=== PATIENT | male | born 1950 | race Caucasian/White ===

== ENCOUNTER → 2021-07-11 08:54 | Outpatient (BNVA) | payer MEDICARE, SELFPAY | PROVIDERS: Family Provider Family Medicine; PCP Family Medicine; Visit Provider Family Medicine Adult Medicine | DX: S91.109A Unspecified open wound of unspecified toe(s) without damage to nail, initial encounter (principal); X58.XXXA Exposure to other specified factors, initial encounter | CPT/HCPCS: 88304 ==

== ENCOUNTER → 2022-11-28 14:19 | Outpatient (BNVA) | payer MEDICARE, SELFPAY | PROVIDERS: Family Provider Family Medicine; PCP Family Medicine; Visit Provider Surgery | DX: K40.20 Bilateral inguinal hernia, without obstruction or gangrene, not specified as recurrent (principal) | CPT/HCPCS: 99203 ==

== ENCOUNTER 2022-11-29 10:36 | Day surgery (SDC) | payer MEDICARE, SELFPAY ==
[2022-11-28 17:38] VITALS: BMI 23.1
[2022-11-29] VITALS (10 sets, daily range): BP systolic 152–197; BP diastolic 84–101; PULSE 54–89; RESP 16–18; TEMP 36.1–36.4; O2SAT 95–100
[2022-11-29] MEDS: sodium chloride 0.9% 1,000 ML 30 ML IV (11:01)
--- NOTE | 2022-11-29 12:30 | W.PM.OPSUD ---
Surgery/Procedure H&P Update DATE OF PROCEDURE: November 29, 2022 DATE H&P PERFORMED: 11/28/22 H&P UPDATE INFORMATION: I have reviewed H&P completed within last 30 days, I have examined patient prior to procedure and No changes to prior documentation PLANNED PROCEDURE: Operation Date: 11/29/22 12:15 Proposed Procedures p 88249 x2 lap bilateral inguinal hernia with mesh K40.20(Bilateral) - Aashish Wheeler DO
[2022-11-29] MEDS: ceFAZolin 2,000 MG in sodium chloride 0.9% (plus) 50 ML 100 MG IV (12:51)
[2022-11-29] MEDS: lidocaine-epi 2% 20 mL INJ INJECTION (13:18)
--- NOTE | 2022-11-29 13:23 | ANES.PREANE2 ---
Pre-Anesthetic Assessment Height/Weight: Height 1.91 m Weight 83.915 kg Temp Pulse Resp BP Pulse Ox O2 Del Method 97.5 F L 60 18 152/96 96 Room Air 11/29/22 10:55 11/29/22 10:55 11/29/22 10:55 11/29/22 10:55 11/29/22 10:55 11/29/22 10:55 Operation Date: 11/29/22 12:15 Proposed Procedures p 52696 x2 lap bilateral inguinal hernia with mesh K40.20(Bilateral) - Aashish Wheeler DO Familial anesthetic complications: none Was Beta Lydia taken within 24 hours: N/A Was Clonidine taken within 24 hours: N/A Last intake: Intake Last Liquid Date 11/28/22 Last Liquid Time 22:00 Last Solid Date 11/28/22 Last Solid Time 22:00 Social No alcohol and No tobacco Exam alert, oriented x 3, clear to auscultation bilaterally and regular rate & rhythm Airway Submandibular: within normal limits Cervical ROM: within normal limits Mallampati: Class III Dentition: full History/ROS No significant history except as noted Anesthetic Plan ASA status: 1 Anesthesia: General Medications/Allergies Home Medications Medication Instructions Recorded Confirmed Last Taken Type Saccharomyces boulardii [Daily 1 tab PO DAILY 07/11/21 11/28/22 11/28/22 History Probiotic (S. boulardii)] cholecalciferol (vitamin D3) 1 tab PO DAILY 07/11/21 11/28/22 11/28/22 History diclofenac sodium 1 % topical gel 2 g topical QID 07/11/21 11/28/22 11/28/22 History (Arthritis Pain (diclofenac)) garlic 1 tab PO DAILY 07/11/21 11/28/22 11/28/22 History omega-3 fatty acids [Fish Oil 1 tab PO BID 07/11/21 11/28/22 11/28/22 History Concentrate] tepxnth-mnhq-rkgck-oreg-capryl 1 tab PO TID 07/11/21 11/28/22 11/28/22 History zinc xui-pxaamt-fyw palm-gnsg 1 tab PO DAILY 07/11/21 11/28/22 11/28/22 History [Prostate Health Formula] Heal and Soothe 2 tab PO DAILY 08/16/21 11/28/22 11/28/22 History Joint Support 1 tab PO DAILY 08/16/21 11/28/22 11/28/22 History magnesium chloride 1 tab PO DAILY 08/16/21 11/28/22 11/28/22 History multivitamin 1 tab PO DAILY 08/16/21 11/28/22 11/28/22 History Allergies Allergy/AdvReac Type Severity Reaction Status Date / Time No Known Allergies Allergy Verified 11/28/22 17:27 Current Medications Generic Name Dose Route Start Last Admin Trade Name Marlin PRN Reason Stop Dose Admin Sodium Chloride 1,000 mls @ 30 mls/hr 11/29/22 11:00 11/29/22 11:01 Sodium Chloride 0.9% IV 11/30/22 10:59 30 mls/hr .Q24H ALEIDA Administration PFSH Anesthesia Medical History Bronchitis Discoloration of skin of toe Non-healing open wound of toe 07/11/2021 excision of 1.5 cm non-healing lesion of 4th digit left foot at distal phalanges on planar surface Reducible right inguinal hernia Surgical History History of back surgery Hx of neck surgery Social History Smoking and tobacco status: never smoked Substance/Drug Use: never Lives independently: Yes Current occupational status: retired Data Anesthesia Cardiac Studies: No Data to Display
--- NOTE | 2022-11-29 13:50 | PM.OP ---
Operative Report Date of procedure: November 29, 2022 Pre-op diagnosis: Bilateral inguinal hernias Post-op diagnosis: Bilateral indirect inguinal hernias Procedure done: Laparoscopic repairs of bilateral inguinal hernias with mesh Implants: Left and right extra-large 3D max Bard meshes Specimens removed/disposition: None Surgeon: Dr. Aashish Wheeler DO Anesthesia: General Estimated blood loss (mL): 5 Complications: None apparent Brief History: This is a very pleasant 72-year-old gentleman who presents to my office with bilateral inguinal hernias. Laparoscopic repairs with mesh was indicated. The risk and benefits were explained and documented. Procedure: Patient was wheeled into the operative room and placed on the OR table in a supine position. Abdomen was inspected prepped and draped in usual sterile fashion. Time-out was performed and all present were in agreement. A 15 blade scalpel was used to make 1.2 centimeter incision infraumbilically. Combination of sharp and blunt dissection was performed down to the anterior rectus sheath which was opened sharply. The dissecting balloon was then inserted into the space of Retzius and blown up. We put the camera into the port and identified that we were in the correct space. I then placed 2 5 millimeter trocars suprapubically in the midline. I then used endokitners to bluntly dissect in the space of Retzius out laterally. An indirect inguinal hernia was identified on the right. Blunt dissection was performed to dissect down the hernia sac until the vas deferens dove medially. An extralarge right inguinal mesh was then placed into the space of Retzius. The mesh was unrolled and tacked once medially at the pubic bone. The mesh laid out nicely over the spermatic cord. An indirect inguinal hernia was identified on the left. Blunt dissection was performed to dissect down the hernia sac until the vas deferens dove medially. An extralarge left inguinal mesh was then placed into the space of Retzius. The mesh was unrolled and tacked once medially at the pubic bone. The mesh laid out nicely over the spermatic cord. I watched the hernia sacs remain in place as insufflation was removed. Incisions were closed with 4 O Vicryl in a subcuticular interrupted fashion. Skin glue was applied. Patient tolerated the procedure well.
[2022-11-29] MEDS: HYDROcodone-acetaminophen 10-325 mg Tablet 1 TAB PO (14:51)
[2022-11-29] MEDS: diphenhydrAMINE 50 mg/mL SDV 1mL 12.5 MG IVP (15:05)
--- NOTE | 2022-11-29 16:23 | ANE.PACU2 ---
Inpatient post-anesthesia follow up: Airway intact: Yes Vital signs: Temperature 97.4 F Pulse Rate 89 Respiratory Rate 18 Blood Pressure 160/84 Pulse Oximetry 98 Oxygen Delivery Me thod Room Air Oxygen Flow Rate Fraction of Inspir ed Oxygen Hydration adequate: Yes Nausea and vomiting: No Pain level: 2 Mental status: Baseline
== END 2022-11-29 15:35 | disposition home or self-care (01) ==
PROVIDERS: PCP Family Medicine; Visit Provider Surgery
PROC: (CPT 49650; principal; 2022-11-29 12:05)
DX: K40.20 Bilateral inguinal hernia, without obstruction or gangrene, not specified as recurrent (principal); K40.90 Unilateral inguinal hernia, without obstruction or gangrene, not specified as recurrent
CPT/HCPCS: 49650; 51702; C1781; J0690; J1100; J1170; J1200; J2405; J2704; J2710; J3010; J3490; J7030

== ENCOUNTER → 2022-12-18 10:49 | Outpatient (BNVA) | payer MEDICARE, SELFPAY | PROVIDERS: PCP Family Medicine; Visit Provider Surgery | DX: Z98.890 Other specified postprocedural states (principal); Z87.19 Personal history of other diseases of the digestive system | CPT/HCPCS: 99024 ==